=== PATIENT | female | born 1975 | race African-American/Black ===

== ENCOUNTER → 2024-12-20 17:32 | Outpatient (REF) | payer OTHER, SELFPAY | LOC: RAD 17:32 | PROVIDERS: ATTENDING PHYSICIAN Student in an Organized Health Care Education/Training Program | DX: R05.3 Chronic cough (principal) | CPT/HCPCS: 71046 ==

== ENCOUNTER → 2025-04-12 22:00 | Outpatient (REF) | payer OTHER, SELFPAY | LOC: DHSLP 22:00 | PROVIDERS: ATTENDING PHYSICIAN Internal Medicine; FAMILY PHYSICIAN Student in an Organized Health Care Education/Training Program | DX: G47.30 Sleep apnea, unspecified (principal); R06.83 Snoring | CPT/HCPCS: 95800 ==

== ENCOUNTER → 2025-05-31 14:30 | Outpatient (REF) | payer OTHER, SELFPAY | LOC: HWWDC 14:30 | PROVIDERS: ATTENDING PHYSICIAN Student in an Organized Health Care Education/Training Program; REFERRING PHYSICIAN Obstetrics & Gynecology Gynecology | DX: Z12.31 Encounter for screening mammogram for malignant neoplasm of breast (principal) | CPT/HCPCS: 77063; 77067 ==

== ENCOUNTER 2025-06-20 13:39 | Outpatient (RCR) | payer OTHER, SELFPAY ==
[2025-06-05 14:59] VITALS: BP 157/96
[2025-06-05] MEDS: VENOFER 110 MG IV (15:08)
[2025-06-05 16:48] VITALS: BP 146/87
[2025-06-12 14:05] VITALS: BP 138/79
[2025-06-12] MEDS: VENOFER 110 MG IV (14:13)
[2025-06-12 15:13] VITALS: BP 130/81
[2025-06-20 13:46] VITALS: BP 148/78
[2025-06-20] MEDS: VENOFER 110 MG IV (13:55)
[2025-06-20 15:13] VITALS: BP 146/81
== END 2025-06-22 10:40 | disposition home or self-care (01) ==
LOC: OID 13:39
PROVIDERS: ATTENDING PHYSICIAN Physician Assistant; FAMILY PHYSICIAN Student in an Organized Health Care Education/Training Program
DX: J45.50 Severe persistent asthma, uncomplicated; D50.9 Iron deficiency anemia, unspecified; G47.411 Narcolepsy with cataplexy; F33.1 Major depressive disorder, recurrent, moderate
CPT/HCPCS: 96365; J1756

== ENCOUNTER → 2025-06-27 09:32 | Outpatient (REF) | payer OTHER, SELFPAY | LOC: HWRAD 09:32 | PROVIDERS: ATTENDING PHYSICIAN Internal Medicine; FAMILY PHYSICIAN Student in an Organized Health Care Education/Training Program | DX: R14.0 Abdominal distension (gaseous) (principal) | CPT/HCPCS: 76700 ==

== ENCOUNTER 2025-07-03 14:23 | Outpatient (RCR) | payer OTHER, SELFPAY ==
[2025-06-26 14:50] VITALS: BP 159/70
[2025-06-26] MEDS: VENOFER 110 MG IV (15:04)
[2025-07-03] MEDS: VENOFER 110 MG IV (14:45)
[2025-07-03 14:52] VITALS: BP 150/91
[2025-07-03 15:54] VITALS: BP 154/92
== END 2025-07-04 10:04 | disposition home or self-care (01) ==
LOC: OID 14:23
PROVIDERS: ATTENDING PHYSICIAN Physician Assistant; FAMILY PHYSICIAN Student in an Organized Health Care Education/Training Program
DX: D50.9 Iron deficiency anemia, unspecified (principal); J45.50 Severe persistent asthma, uncomplicated
CPT/HCPCS: 96365; J1756

== ENCOUNTER 2025-07-04 06:33 | Day surgery (SDC) | payer OTHER, SELFPAY | END 2025-07-04 13:17 | disposition home or self-care (01) | LOC: GI 06:33 | PROVIDERS: ATTENDING PHYSICIAN Internal Medicine; FAMILY PHYSICIAN Student in an Organized Health Care Education/Training Program | DX: D50.9 Iron deficiency anemia, unspecified (principal); K29.60 Other gastritis without bleeding; K31.89 Other diseases of stomach and duodenum | CPT/HCPCS: 43239; 45378; 88305; 88342 ==